=== PATIENT | female | born 1970 | race Two or more races ===

== ENCOUNTER 2023-01-08 17:08 | Emergency (ER) | payer OTHER ==
[2023-01-08] MEDS ORDERED: KETOROLAC 15 MG/ML 1 ML VIAL IVP STA ×2 (17:42→19:43)
[2023-01-08] MEDS ORDERED: METOCLOPRAMIDE 5 MG/ML 2 ML VIAL IVP STA (17:42)
[2023-01-08] MEDS ORDERED: SODIUM CHLORIDE 0.9% 1,000 ML IV STA (17:42)
[2023-01-08] MEDS ORDERED: FAMOTIDINE 20 MG/2 ML VIAL IV STA (17:56)
--- NOTE | 2023-01-08 18:02 | ED ---
Chest Pain HPI - General Chief Complaint: Chest Pain Stated Complaint: Rt sided chest pain Time Seen by Provider: 01/08/23 17:30 Source: patient, EMS, RN notes reviewed Mode of arrival: EMS Limitations: no limitations - History of Present Illness Initial Comments: This is a 52-year-old female who presents to the emergency department for chest pain. States that she's had intermittent problems with right-sided chest pain over the last couple of months. Pain is described as burning and also in the epigastric region. Patient presents from [place] where she's being treated for cocaine use. States that she had a chest x-ray 4 days ago that she was told was normal. Also reports associated nausea and vomiting. Denies any personal or family cardiac history. She was given Zofran by EMS en route with minimal improvement in nausea. Denies any fevers, chills, sore throat, cough, palpitations, abdominal pain, diarrhea, back pain, or headaches. MD Complaint: chest pain Pain Location: right chest - Related Data Previous Rx's Medication Instructions Recorded Ondansetron Odt [Zofran Odt] 4 mg PO Q8HR PRN #15 tab 01/08/23 Pantoprazole [Protonix] 40 mg PO DAILY 14 Days #14 tab 01/08/23 Allergies Allergy/AdvReac Type Severity Reaction Status Date / Time No Known Allergies Allergy Verified 01/08/23 19:35 Review of Systems ROS Statement: Those systems with pertinent positive or pertinent negative responses have been documented in the HPI. ROS Other: All systems not noted in ROS Statement are negative. Past Medical History Past Medical History: Asthma, Hypertension History of Any Multi-Drug Resistant Organisms: None Reported Past Surgical History: No Surgical Hx Reported Past Psychological History: Anxiety, Bipolar, Depression Smoking Status: Current every day smoker Past Alcohol Use History: None Reported Past Drug Use History: Cocaine General Exam Limitations: no limitations General appearance: alert, in no apparent distress Head exam: Present: atraumatic, normocephalic, normal inspection Respiratory exam: Present: normal lung sounds bilaterally, chest wall tenderness (right). Absent: respiratory distress, wheezes, rales, rhonchi, stridor Cardiovascular Exam: Present: regular rate, normal rhythm, normal heart sounds. Absent: systolic murmur, diastolic murmur, rubs, gallop, clicks GI/Abdominal exam: Present: soft, tenderness (epigastric, RUQ), normal bowel sounds. Absent: distended, guarding, rebound, rigid Neurological exam: Present: alert, oriented X3, CN II-XII intact Psychiatric exam: Present: normal affect, normal mood Skin exam: Present: warm, dry, intact, normal color. Absent: rash Course Vital Signs 01/08/23 01/08/23 01/08/23 17:25 17:32 21:00 Temperature 97.0 F L 97.1 F L Pulse Rate 62 70 Pulse Rate [ 62 Art Department Head ] Respiratory 18 20 Rate Blood Pressure 127/77 122/70 O2 Sat by Pulse 95 97 Oximetry Chest Pain MDM - MDM This is a 52-year-old female who presents to the emergency department for chest pain. Was pt. sent in by a medical professional or institution? @ -No Did you speak to anyone other than the patient for history? @ -No Did you review nursing and triage notes? @ -Yes, and I agree, it is accurate with regards to the patient's symptoms. Were old charts reviewed? @ -No Differential Diagnosis? @ -Differential Chest Pain: Stable Angina, Unstable Angina, STEMI, NSTEMI Aortic Dissection, Pneumothorax, Musculoskeletal, Esophageal Spasm GERD, Cholecystitis, Pancreatitis, Zoster, this is not meant to be an all-inclusive list. EKG interpreted by me (3pts min.)? @ -Sinus rhythm. Ventricular rate 63 beats per minute, MN interval 162 ms, QRS duration 89 ms, QTC 425 ms. X-rays interpreted by me (1pt min.)? @ -Chest x-ray obtained, my interpretation identifies no localized consolidations or infiltrates. U/S interpreted by me (1pt. min.)? @ -Gallbladder ultrasound obtained. Gallbladder not visualized and findings are consistent with a cholecystectomy, which the patient still has no recollection of. What testing was considered but not performed? (CT, X-rays, U/S, labs)? Why? @ -None What meds were considered but not given? Why? @ -None Did you discuss the management of the patient with other professionals? @ -No Did you reconcile home meds? @ -I discussed smoking cessation for greater than 3 minutes. The risk of smoking were discussed with the patient including but not limited to risks of cancer, stroke, coronary artery disease and COPD. Also discussed with patient were multiple methods of quitting smoking. Lastly we discussed the financial cost of smoking. Was smoking cessation discussed for >3mins.? @ -No Was critical care preformed (if so, how long)? @ -No Were there social determinants of health that impacted care today? How? (Homelessness, low income, unemployed, alcoholism, drug addiction, transportation, low edu. Level, literacy, decrease access to med. care, group home, rehab)? @ -Yes, the patient is in rehab for drug addiction at [facility]. This contributes to her overall worsening of health status. Patient also has a little education and literacy level, causing poor understanding of her health, body function, and difficulty with understanding/reading any provided instructions. Was there de-escalation of care discussed even if they declined? (Discuss DNR or withdrawal of care, Hospice)? @ -No What co-morbidities impacted this encounter? (DM, HTN, Smoking, COPD, CAD, Cancer, CVA, Hep., AIDS, mental health diagnosis, sleep apnea, morbid obesity)? @ -Asthma, HTN Was patient admitted / discharged? @ -Discharged. Lab work obtained and found to be nonactionable. Chest x-ray reveals no acute findings. Gallbladder ultrasound was initially ordered, as the patient stated that she did in fact have her gallbladder and had no history of abdominal surgeries. Ultrasound noticed a large scar in the patient's right upper quadrant. Patient continued to say she did not recall any history of abdominal surgeries. However, she does recall having stones removed at one point, but is unsure what kind of stone this was. There was an echogenicity in the upper pole of the kidney that may be related to a scar or lipoma. The ultrasound did confirm a cholecystectomy. I ordered Toradol, Pepcid, and Reglan for the patient's symptoms, however, unfortunately, her nurse had not given them to her in several hours. At which point, the patient's testing returned and she requested discharge home. She ended up declining the medications because she wanted to leave so that she could go outside and smoke, and stated that she felt fine. Findings are not suspicious for ACS, as the pain is reproducible, right- sided, has been present for 2 months, and is also burning and in the epigastric region. Will treat the patient for possible acid reflux or costochondritis. Prescription for pantoprazole and Zofran provided with dosing instructions reviewed. Otherwise advised ibuprofen and Tylenol as needed for pain relief. She'll follow up with her primary care provider and discuss if any additional testing is indicated. Patient discharged back into the care of [facility]. Undiagnosed new problem with uncertain prognosis? @ -None Drug Therapy requiring intensive monitoring for toxicity (Heparin, Nitro, Insulin, Cardizem)? @ -None Were any procedures done? @ -None Diagnosis/symptom? @ -Right sided chest pain Acute, or Chronic, or Acute on Chronic? @ -Acute Uncomplicated (without systemic symptoms) or Complicated (systemic symptoms)? @ -Uncomplicated Side effects of treatment? @ -None Exacerbation, Progression, or Severe Exacerbation] @ -Not applicable Poses a threat to life or bodily function? @ -No Return precautions reviewed in depth, the patient is instructed to return to the emergency department with any new, worsening, or concerning symptoms. Patient verbalized understanding. This case was discussed in detail with the attending ED physician, Dr. Solis. Presentation, findings, and treatment plan discussed in detail as well. Disposition Clinical Impression: Right-sided chest pain Disposition: HOME SELF-CARE Instructions (If sedation given, give patient instructions): Chest Pain (ED), Costochondritis (ED), Noncardiac Chest Pain (ED) Additional Instructions: Return to the emergency department with any new, worsening, or concerning symptoms. Take the Protonix daily. Take this 30 minutes before having anything to eat or taking other medications. Take the Zofran up to every 8 hours as needed for nausea and vomiting. You can also alternate with ibuprofen and Tylenol as needed for pain relief. Follow up with your primary care provider in 1-2 days. Prescriptions: Pantoprazole [Protonix] 40 mg PO DAILY 14 Days #14 tab Ondansetron Odt [Zofran Odt] 4 mg PO Q8HR PRN #15 tab PRN Reason: Nausea And Vomiting Is patient prescribed a controlled substance at d/c from ED?: No Referrals: Nonstaff,Physician [Primary Care Provider] - 1-2 days
[2023-01-08 18:31] LABS: ALT 33 U/L (4-34); AST 32 U/L (14-36); African American GFR (CKD) >90 (>60 ml/min/1.73 sqM); Albumin 3.8 g/dL (3.5-5.0); Alkaline Phosphatase 123 U/L (38-126); Amylase 89 U/L (30-110); Anion Gap 6 mmol/L; Blood Urea Nitrogen 19 mg/dL (7-17); Calcium 8.7 mg/dL (8.4-10.2); Carbon Dioxide 27 mmol/L (22-30); Chloride 102 mmol/L (98-107); Glucose 111 mg/dL (74-99); Lipase 299 U/L (23-300); Non-African American GFR(CKD) >90 (>60 ml/min/1.73 sqM); Potassium 4.2 mmol/L (3.5-5.1); Sodium 135 mmol/L (137-145); Total Bilirubin 0.3 mg/dL (0.2-1.3); Total Protein 6.9 g/dL (6.3-8.2)
[2023-01-08 18:33] LABS: Basophils % (A) 0 %; Eosinophils # (A) 0.2 k/uL (0-0.7); Eosinophils % (A) 2 %; HCT 38.2 % (34.0-46.0); HGB 13.1 gm/dL (11.4-16.0); Lymphocytes # (A) 1.6 k/uL (1.0-4.8); Lymphocytes % (A) 17 %; MCH 30.1 pg (25.0-35.0); MCHC 34.3 g/dL (31.0-37.0); MCV 87.7 fL (80.0-100.0); Mean Platelet Volume 9.6; Monocytes # (A) 0.4 k/uL (0-1.0); Monocytes % (A) 4 %; Neutrophils # (A) 7.3 k/uL (1.3-7.7); Neutrophils % (A) 75 %; Platelet Count 180 k/uL (150-450); RBC 4.36 m/uL (3.80-5.40); RDW 13.4 % (11.5-15.5); WBC 9.7 k/uL (3.8-10.6)
[2023-01-08 18:43] LABS: INR 0.9 (<1.2); Prothrombin Time 9.7 sec (9.0-12.0)
--- NOTE | 2023-01-08 18:50 | XR ---
EXAMINATION TYPE: XR chest 2V DATE OF EXAM: 01/08/2023 COMPARISON: NONE HISTORY: Chest pain TECHNIQUE: 2 views FINDINGS: Heart and mediastinum are normal. Lungs are clear. Diaphragm is normal. Bony thorax appears normal. IMPRESSION: Normal chest.
[2023-01-08 18:59] LABS: Partial Thromboplastin Time 21.9 sec (22.0-30.0)
[2023-01-08] MEDS ORDERED: MAG HYDROX/AL HYDROX/SIMETH 30 ML, HYOSCYAMINE ELIXIR 10 ML PO STA ×2 (19:33)
[2023-01-08] MEDS ORDERED: ONDANSETRON 4 MG ODT STARTER PACK 2 TAB BTL PO STA (19:34)
--- NOTE | 2023-01-08 19:34 | US ---
EXAMINATION TYPE: US gallbladder DATE OF EXAM: 01/08/2023 COMPARISON: NONE CLINICAL HISTORY: Epigastric and RUQ pain. TECHNIQUE: Multiple sonographic images of the right upper quadrant are obtained. FINDINGS: EXAM MEASUREMENTS: Liver Length: 15.7 cm Gallbladder Wall: -- cm CBD: 0.79 cm Right Kidney: 9.2 x 3.5 x 4.5 cm EMERGENCY ROOM PHYSICIAN ASSISTANT NOTES:Patient is unaware of any surgeries, but does have a scar on the RUQ and does remem cheri possible stones (of unknown location) being removed. Pancreas: Tail obscured by overlying bowel gas Liver: Slight increased attenuation Gallbladder: Obscured vs. surgically absent Evidence for sonographic Alonso's sign: No CBD: wnl Right Kidney: Echogenic wedge mass, possible infarct, 1.0 x 1.1 x 1.3cm. IMPRESSION: This cortical echogenicity in the upper pole right kidney that could be lipoma or scar. No discrete liver mass. No significant dilation of the bile ducts. Cholecystectomy noted.
[2023-01-08] MEDS ORDERED: ACETAMINOPHEN TAB 325 MG TAB PO STA (19:43)
[2023-01-08 21:37] VITALS: BP 122/70; PULSE 70; RESP 20; TEMP 97.1
== END 2023-01-08 21:00 | disposition home or self-care (01) ==
LOC: EC 17:08
DX: R07.89 Other chest pain (principal); J45.909 Unspecified asthma, uncomplicated; I10 Essential (primary) hypertension; F41.9 Anxiety disorder, unspecified; F31.9 Bipolar disorder, unspecified; F17.200 Nicotine dependence, unspecified, uncomplicated
CPT/HCPCS: 36415; 93005; 80053; 82150; 83690; 83735; 84484; 85025; 85610; 85730; 71046; 76705; 99285; 96360; S0119